=== PATIENT | female | born 1975 | race Caucasian/White ===

== ENCOUNTER 2019-08-01 10:49 | Emergency (ER) | payer BC ==
--- OUTSIDE RECORDS SUMMARY | 2019-08-01 11:13 | XMS REPORT | Continuity of Care Document ---
:1975 External Reference #:[id number] Author Name Christiane Diaz N.P. (transmitted by agent of provider Tea Small) Address [address], [place] [address] Care Team Providers Name Role Phone Katie Russo MD - Internal Care Team Information Hands Assembler [phone] Medicine Ilene Conley M.D. - Family Medicine Care Team Information Hands Assembler [phone] Problems Active Problems Provider Date Depressive disorder Katie Russo M.D. Onset: 03/13/2015 Primary fibromyalgia syndrome Katie Russo M.D. Onset: 03/13/2015 Decreased vitamin D Katie Russo M.D. Onset: 03/13/2015 Varicose veins of lower extremity Katie Russo M.D. Onset: 07/18/2016 Social History Type Date Description Comments Sex Unknown ETOH Use Drinks Alcoholic Beverages Occasionally Tobacco Use Start: Unknown Patient has never smoked Recreational Drug Use Denies Drug Use Smoking Status Reviewed: 07/26/19 Patient has never smoked Exercise Type/Frequency Exercises regularly Allergies, Adverse Reactions, Alerts Description No Known Drug Allergies Medications Active Medications SIG Qnty Indications Ordering Provider Date Phentermine HCL 1 daily before 30caps Christiane Diaz, 07/26/2019 breakfast or 1-2 N.P. 37.5mg Capsules hours after breakfast History Medications No Active Medications Unknown 07/26/2019 - 07/26/2019 Immunizations CPT Code Status Date Vaccine Lot # [id number] Given 02/24/2011 Tetanus And Diptheria (Td) For Adult Use Preservative Free Vital Signs Date Vital Result Comment 07/26/2019 11:38am Weight 219.12 lb Heart Rate 69 /min BP Systolic Sitting 126 mmHg BP Diastolic Sitting 85 mmHg Body Temperature 97.3 F O2 % BldC Oximetry 99 % 03/01/2017 2:45pm Weight 215.50 lb Heart Rate 60 /min BP Systolic 112 mmHg BP Diastolic 70 mmHg Body Temperature 97.5 F O2 % BldC Oximetry 99 % Results Description No Information Available Procedures Date Code Description Status 03/02/2016 64341861 Mammogram Completed Medical Devices Description No Information Available Encounters Description No Information Available Assessments Date Code Description Provider 07/26/2019 Z00.00 Encounter for general adult medical Christiane Diaz N.Baldev examination without abnormal findings 07/26/2019 Z12.31 Encounter for screening mammogram for Christiane Diaz N.P. malignant neoplasm of breast 07/26/2019 M79.7 Fibromyalgia Christiane Diaz N.PGalileo 07/26/2019 E55.9 Vitamin D deficiency, unspecified Christiane Diaz N.PGallieo 07/26/2019 Z01.419 Encounter for gynecological examination Christiane Diaz N.P. (general) (routine) without abnormal findings 07/26/2019 Z31.41 Encounter for fertility testing Christiane Diaz N.Baldev Plan of Treatment 07/26/2019 - Christiane Diaz N.BaldevZ00.00 Encounter for general adult medical examination without abnormal findingsComments:For your routine health maintenance: I would encourage you to continue with a regular exercise program. Your Tetanus immunization is up to date. You received this in 2010. It is good for 10 years unless you have a major injury, then it is good for 5 years. You need to be getting between 1,000 - 1,200mg of Calcium in daily. The best way to supplement what you get in your diet is to drink Calcium fortified orange juice. If you take a Calcium supplement be sure it has Vitamin D in it to help absorption.Z12.31 Encounter for screening mammogram for malignant neoplasm of breastNew Xrays:Mammogram Screening Sadiq, Ordered: 07/26/19Comments:I have ordered your routine screening mammogram. The imaging department will give you your results at the time of your visit. I encourage you to do self exams. If you should notice any masses or thickening, please give the office a call.M79.7 FibromyalgiaComments:For your fibromyalgia you may find using CBD oils helpful.E55.9 Vitamin D deficiency, unspecifiedComments:For your history of Vitamin D deficiency you should be taking between 1,000 - 2,000 mg of Vit D daily. Nature Made makes a great gummy vitamin.Z01.419 Encounter for gynecological examination (general) (routine) without abnormal findingsNew Labs: Cytology, Ordered: 07/26/19Comments:You have had your pap smear today.The office will contact you with the results. The bumps you were worried about are benign sebaceous cysts. Applying moist heat may help.Z31.41 Encounter for fertility testingComments:To evaluate your fertility I have ordered an FSH level. Get your blood drawn on day 3 of your menstrual cycle. I will contact you with your results. Functional Status Description No Information Available Mental Status Description No Information Available Referrals Description No Information Available
--- OUTSIDE RECORDS SUMMARY | 2019-08-01 11:13 | XMS REPORT | Continuity of Care Document ---
:1975 External Reference #:[id number] Author Name Christiane Diaz N.P. (transmitted by agent of provider Cheyenne Jarrell) [facility] [address] [facility] [place] [address] Care Team Providers Name Role Phone Katie Russo MD - Internal Care Team Information Tong Setter [phone] Medicine Ilene Conley M.D. - Family Medicine Care Team Information Tong Setter [phone] Problems Active Problems Provider Date Depressive disorder [...] CPT Code Status Date Vaccine Lot # [id number] Given 02/24/2011 Tetanus And Diptheria (Td) For [...] O2 % BldC Oximetry 99 % Results Test Acquired Date Facility Test Result H/L Range Note Laboratory test 07/26/2019 [facility] Cytology <pending> finding [address] [place] [address] [phone] Procedures Date Code Description Status 03/02/2016 [id number] Mammogram Completed Medical Devices Description No Information Available Encounters Description No Information Available Assessments Date Code Description Provider 07/26/2019 Z00.00 Encounter for general adult medical Christiane Diaz N.PGalileo examination without abnormal findings 07/26/2019 Z12.31 Encounter for screening mammogram for Christiane Diaz N.Baldev malignant neoplasm of breast 07/26/2019 M79.7 Fibromyalgia Christiane Diaz N.PGalileo 07/26/2019 E55.9 Vitamin D deficiency, unspecified Christiane Diaz N.P. 07/26/2019 Z01.419 Encounter for gynecological examination Christiane Diaz N.Baldev (general) (routine) without abnormal findings 07/26/2019 Z31.41 Encounter for fertility testing Christiane Diaz N.Baldev Plan of Treatment 07/26/2019 - Christiane Diaz N.Maria Alejandra.Z00.00 Encounter for general adult medical examination without [...] for screening mammogram for malignant neoplasm of breastComments:I have ordered your routine screening mammogram. The [...] for gynecological examination (general) (routine) without abnormal findingsComments:You have had your pap smear today.The office [...]
[2019-08-01] MEDS ORDERED: Ketorolac INJ* 30 MG/ML 1 ML VIAL IM ONE (12:11)
[2019-08-01] MEDS ORDERED: Lidocaine PATCH 5%* 1 PATCH TRANSDERM ONE (12:13)
--- NOTE | 2019-08-01 12:16 | ED ---
Shortness of Breath - HPI Summary HPI Summary: 44 year old female presents with thoracic back pain since yesterday. She states pain is causing her shortness of breath. She feels like her breath keeps catching. States that pain radiates to the front. She denies abdominal pain. She denies any cough. No fevers. States that this feels like when she has had walking pneumonia in the past. Has no medical conditions. Hasn't taking anything for her pain. No urinary symptoms. no loss of bowel or bladder or saddle anesthesias. no fevers but admits to chills. is not a smoker. - History of Current Complaint Chief Complaint: EDUpperRespComplaint Time Seen by Provider: 08/01/19 11:51 - Allergy/Home Medications Allergies/Adverse Reactions: Allergies Allergy/AdvReac Type Severity Reaction Status Date / Time No Known Allergies Allergy Verified 08/01/19 10:58 PMH/Surg Hx/FS Hx/Imm Hx Endocrine/Hematology History: Denies: Hx Anticoagulant Therapy Respiratory History: Denies: Hx Asthma, Hx Chronic Obstructive Pulmonary Disease (COPD) - Cancer History Hx Chemotherapy: No Hx Radiation Therapy: No Infectious Disease History: No Infectious Disease History: Denies: Traveled Outside the [place] in Last 30 Days - Family History Known Family History: Positive: Non-Contributory - Social History Alcohol Use: Occasionally Substance Use Type: Reports: None Smoking Status (MU): Never Smoked Tobacco Review of Systems Negative: Fever Negative: Chest Pain Positive: Shortness Of Breath, Other - chest tightness. Negative: Cough Negative: Abdominal Pain Positive: Myalgia - back pain All Other Systems Reviewed And Are Negative: Yes Physical Exam Triage Information Reviewed: Yes Vital Signs On Initial Exam: Initial Vitals Temp Pulse Resp BP Pulse Ox 98.1 F 98 16 145/92 100 08/01/19 10:54 08/01/19 10:54 08/01/19 10:54 08/01/19 10:54 08/01/19 10:54 Vital Signs Reviewed: Yes Appearance: Positive: Well-Appearing Skin: Positive: Warm, Dry Head/Face: Positive: Normal Head/Face Inspection Eyes: Positive: Normal, Conjunctiva Clear ENT: Positive: Pharynx normal Respiratory/Lung Sounds: Positive: Clear to Auscultation, Breath Sounds Present Cardiovascular: Positive: Normal, RRR Abdomen Description: Positive: Nontender, Soft Bowel Sounds: Positive: Present Musculoskeletal: Positive: Strength/ROM Intact - back, Other - tenderness on right side of thoracic back Neurological: Positive: Normal Psychiatric: Positive: Normal Procedures - Sedation Patient Received Moderate/Deep Sedation with Procedure: No Diagnostics - Vital Signs Vital Signs Temp Pulse Resp BP Pulse Ox 08/01/19 10:54 98.1 F 98 16 145/92 100 - Laboratory Result Diagrams: 08/01/19 12:37 08/01/19 12:37 Lab Statement: Any lab studies that have been ordered have been reviewed, and results considered in the medical decision making process. - Radiology chest Radiology Interpretation Completed By: Radiologist Summary of Radiographic Findings: IMPRESSION: NO ACTIVE CARDIOPULMONARY DISEASE. thoracic Radiology Interpretation Completed By: Radiologist Summary of Radiographic Findings: IMPRESSION: MILD DEGENERATIVE DISC DISEASE, NO EVIDENCE FOR FRACTURE. - EKG No standard instances Cardiac Rate: NL EKG Rhythm: Sinus Rhythm Summary of EKG Findings: sinus rhythm Re-Evaluation - Re-Evaluation First Eval Re-Evaluation Time: 13:27 Change: Improved Comment: feeling better Course/Dx - Course Course Of Treatment: 44 year old female presents with thoracic back pain since yesterday. She states pain is causing her shortness of breath. She feels like her breath keeps catching. States that pain radiates to the front. She denies abdominal pain. She denies any cough. No fevers. States that this feels like when she has had walking pneumonia in the past. Has no medical conditions. Hasn't taking anything for her pain. No urinary symptoms. no loss of bowel or bladder or saddle anesthesias. no fevers but admits to chills. on exam tenderness right side of thoracic back. lungs CTA. ekg sinus rhythm. chest xray shows no acute findings. thoracic xray degenerative changes. gave toradol and lidoderm and feeling better. wbc normal. d-dimer neg. crp elevated. discussed to take tyenlol or ibuprofen. told follow up with primary. patient understand and agrees with plan. - Diagnoses Differential Diagnosis/HQI/PQRI: Positive: Chest Wall Pain, Pneumonia, Pneumothorax Provider Diagnoses: Back pain, Shortness of breath Discharge ED - Sign-Out/Discharge Documenting (check all that apply): Patient Departure - Discharge Plan Condition: Good Disposition: HOME Patient Education Materials: Back Pain (ED) Referrals: Christiane Diaz NP [Primary Care Provider] - Additional Instructions: Use ibuprofen or Tylenol for pain every 6 hours ice/heat area, move as much as possible Follow up with primary within 5 days Return to ED if develop any new or worsening symptoms - Billing Disposition and Condition Condition: GOOD Disposition: Home - Attestation Statements Provider Attestation: I was available for consultation for this patient. I did not evaluate the patient or participate in any medical decision making or disposition decisions unless I am specifically named in the chart as having consulted on the patient. If I have consulted on the patient, please see my own ED note on the patient encounter. Luis Carlos Vu MD
[2019-08-01 12:52] LABS: ABS Lymphocytes 1.2 10^3/ul (1.0-4.8); ABS Monocytes 0.5 10^3/ul (0-0.8); ABS Neutrophils 5.2 10^3/ul (1.5-7.7); Eosinophil % 0.1 %; Hematocrit 34 % (35-47); Hemoglobin 11.5 g/dL (12.0-16.0); Lymphocyte % 17.7 %; Mean Corpuscular HGB Conc 34 g/dL (31-36); Mean Corpuscular Hemoglobin 27 pg (27-31); Mean Corpuscular Volume 80 fL (80-97); Mean Platelet Volume 8.1 fL (7.4-10.4); Platelet Count 288 10^3/uL (150-450); Red Blood Count 4.28 10^6 /uL (3.70-4.87); Red Cell Distribution Width 15 % (10-15)
[2019-08-01 13:15] LABS: ALT 13 U/L (7-52); AST 13 U/L (13-39); Albumin 3.9 g/dL (3.2-5.2); Albumin/Globulin Ratio 1.1 (1-3); Alkaline Phosphatase 67 U/L (34-104); Anion Gap 7 mmol/L (2-11); BUN/Creatinine Ratio 15.1 (8-20); Blood Urea Nitrogen 8 mg/dL (6-24); C Reactive Protein 32.37 mg/L (<8.01); CO2 Carbon Dioxide 27 mmol/L (22-32); Calcium 9.3 mg/dL (8.6-10.3); Chloride 102 mmol/L (101-111); EGFR African American 153.1 (>60); EGFR Non-African American 126.5 (>60); Globulin 3.4 g/dL (2-4); Glucose 91 mg/dL (70-100); Potassium 3.5 mmol/L (3.5-5.0); Sodium 136 mmol/L (135-145); Total Protein 7.3 g/dL (6.4-8.9)
[2019-08-01 13:21] LABS: HCG Pregnancy < 0.60 mIU/mL
[2019-08-01 13:47] VITALS: BP 127/80
== END 2019-08-01 13:52 | disposition home or self-care (01) ==
LOC: ED 10:49
DX: M54.6 Pain in thoracic spine (principal); R06.02 Shortness of breath
CPT/HCPCS: 36415; 71046; 72070; 80053; 83605; 83880; 84484; 84702; 85025; 85379; 86140; 93005; 96372; 99283; A9270-GY; J1885